=== PATIENT | male | born 1985 | race Native Hawaiian/Other Pacific Islander ===

== ENCOUNTER 2023-11-24 23:35 | Emergency (ER) | payer SELFPAY ==
[2023-11-24 23:43] VITALS: BP 135/84; PULSE 108; RESP 18; TEMP 37.1; O2SAT 96; BMI 28.5
--- NOTE | 2023-11-25 00:47 | CTR_ITS ---
PROCEDURE INFORMATION: Exam: CT Abdomen And Pelvis With Contrast Exam date and time: 11/25/2023 1:28 AM Age: 38 years old Clinical indication: Other: See exam info; Additional info: Pelvic pain, very swollen erythematous shaft penis TECHNIQUE: Imaging protocol: Computed tomography of the abdomen and pelvis with contrast. Radiation optimization: All CT scans at this facility use at least one of these dose optimization techniques: automated exposure control; mA and/or kV adjustment per patient size (includes targeted exams where dose is matched to clinical indication); or iterative reconstruction. Contrast material: OMNI 350; Contrast volume: 100 ml; Contrast route: INTRAVENOUS (IV); COMPARISON: No relevant prior studies available. RADIATION DOSE METRICS: Total DLP (mGy-cm): 864.9 FINDINGS: Lungs: Clear basilar lung parenchyma. Pleural spaces: No pleural fluid. Heart: Normal heart size. Liver: Normal configuration. Homogeneous parenchyma. Gallbladder and bile ducts: Postprandial gallbladder is contracted. No biliary tree dilation. Pancreas: Normal. No ductal dilation. Spleen: Lobulated low-attenuation foci in the spleen likely represent angiomas. Spleen is normal in overall size measuring 12.5 cm in length. Adrenal glands: Normal configuration. Kidneys and ureters: Kidneys enhance symmetrically and demonstrate no evidence of mass, calculus, obstruction, or inflammation. Stomach and bowel: Unremarkable. No obstruction. No mural thickening. Appendix: Normal appendix is confirmed. Intraperitoneal space: No free air. No significant fluid collection. Vasculature: Normal caliber arterial structures. Lymph nodes: Bilateral brightly enhancing reactive size inguinal lymph nodes are noted. Urinary bladder: Unremarkable as visualized. Reproductive: There is considerable edema throughout the penis. Along the dorsal aspect of the penis there is a rim enhancing fluid collection measuring 3.8 x 1.5 x 2.6 cm with attenuation coefficient 39 Hounsfield units. Bones/joints: No fracture or destructive lesion. Soft tissues: No soft tissue gas. No perineal/perianal abscess or inflammation. CT/CT abdomen pelvis w con* [id number] IMPRESSION: There is severe edema of the penis. There is a rim enhancing fluid collection along the dorsum of the penis which could be abscess or hematoma. No abnormal soft tissue gas. Reactive bilateral inguinal adenopathy.
--- NOTE | 2023-11-25 00:55 | W.ED.GENADLT ---
HPI - General Adult General: Chief complaint: General Medical Stated complaint: tick bite, swollen groin area Time Seen by Provider: 11/25/23 00:38 History of Present Illness: Patient presents to the ER with complaints of the shaft of his penis is very erythematous and swollen and painful. Patient states he pulled 2 ticks off his penis about a month ago went to [facility] and was treated with doxycycline. He says the reason he went to the hospital then was because of the redness and swelling. The they did disappear after he finished the antibiotics. But then they come off and on again a couple times but was all very minor. Today the swelling started and it got very swollen very red feels like it is going to split apart. Patient also states he just does not feel well and has not felt well since the original tick bite. Patient is not allergic to any medicine. Patient denies any problems with urinating such as pain burning frequency or discharge. Review of Systems General: Reports: 10 or more systems reviewed and unremarkable except in HPI and below Physical Exam Const: COMMON NORMALS: no acute distress, average body habitus, patient oriented x3, no limitations, healthy appearing, alert and well nourished HENMT: COMMON NORMALS: normocephalic, atraumatic, hearing grossly normal bilaterally, external ears normal, Normal external nose present and moist oral mucous membranes HEAD & SCALP: normocephalic and atraumatic NOSE: Normal external nose present EXTERNAL EAR: Yes external ears normal Neck/C-Spine: COMMON NORMALS: no JVD Chest: COMMONS NORMALS: normal inspection of the chest and normal palpation of entire chest wall Resp: COMMON NORMALS: normal respiratory effort, No retractions, No use of accessory muscles and clear to auscultation bilaterally AUSCULTATION: clear to auscultation bilaterally Cardio: COMMON NORMALS: no JVD, regular rate, regular rhythm, S1 normal heart sound present, S2 normal heart sound present, No gallops present (Cardio), No clicks present (Cardio), No murmurs present (Cardio) and No rub (Cardio) RATE: regular rate RHYTHM: regular rhythm HEART SOUNDS: S1 normal heart sound present and S2 normal heart sound present GI: COMMON NORMALS: Normal to inspection, nondistended, normoactive bowel sounds present, Soft to palpation, No hepatosplenomegaly present and no masses; negative for non-tender (Low pelvic region very tender to palpate, otherwise normal) PALPATION: Yes Soft to palpation and Yes No hepatosplenomegaly present : COMMON NORMALS: Yes Testes normal, Yes scrotum normal and Yes no scrotal swelling PENIS: circumcised, edematous and erythematous OTHER: Penile shaft very swollen and erythematous. Very tender to the touch, tenderness to the touch all the way into the pubic mons and down into the groin creases. No open sores, drainage discharge Neuro: COMMON NORMALS: patient oriented x3 SENSORIUM/ORIENTATION: Yes alert Course Vital Signs: Vital signs: Vital Signs Temperature 98.7 F 11/24/23 23:43 Pulse Rate 89 11/25/23 04:00 Respiratory Rate 16 11/25/23 04:00 Blood Pressure 135/61 11/25/23 04:00 Pulse Oximetry 96 11/25/23 04:00 Oxygen Delivery Me thod Room Air 11/25/23 04:00 MDM - General Adult Medical Decision Making Patient lab work that included CBC CMP lactic acid procalcitonin CRP blood cultures urinalysis, all white count of 18, lactic acid 1.7, procalcitonin 0.06 urinalysis 5-10 white blood cells, 0 to 4 cells, CT scan of the abdomen pelvis with contrast also showed a 3.8 x 1.5 x 2.6 cm rim-enhancing fluid collection in the dorsal aspect of the penis. No abnormal soft tissue gas. Reactive bilateral inguinal lymphadenopathy. Patient was given 10 mg dexamethasone, 30 mg Toradol, 600 mg clindamycin, 3.375 g of Zosyn, 4 mg of morphine, 4 mg of Zofran, [facility] transfer center was called. Transfer center called back and said there urologist Dr. Muhammad felt uncomfortable treating an abscess of the penis this big and he recommended that we [facility] him to some [facility]. Discussed this with the patient he would like to try [facility] first. Talk to the emergency response coordinator at [facility] they do not have any beds at this time. They said we can go on a wait list however is rather long wait list. We said we will continue to call around.Discussed the case with [facility] transfer center awaiting callback from urology so the transfer center called back and said Dr. Kerr urology wanted him to be seen and evaluated in their ER. Talk with Dr. Sampson in the ER who agreed to take the patient in transfer. Differential Diagnosis Penile abscess/cellulitis Medical Records I reviewed the patient's medical records. Lab Data I reviewed the patient's lab results. 11/25/23 00:51 11/25/23 00:51 Radiology Impressions Abdomen/Pelvis CT 11/25/23 00:47 IMPRESSION: There is severe edema of the penis. There is a rim enhancing fluid collection along the dorsum of the penis which could be abscess or hematoma. No abnormal soft tissue gas. Reactive bilateral inguinal adenopathy. Laboratory Results WBC 18.22 10^3/uL (3.29-11.43) H 11/25/23 00:51 RBC 5.28 10^6/uL (3.85-5.65) 11/25/23 00:51 Hgb 14.80 g/dL (11.27-16.99) 11/25/23 00:51 Hct 44.6 % (37-53) 11/25/23 00:51 MCV 84.5 fl (82-101) 11/25/23 00:51 MCH 28.0 pg (27-33) 11/25/23 00:51 MCHC 33.2 g/dL (30-55) 11/25/23 00:51 RDW 12.2 % (12.1-15.1) 11/25/23 00:51 Plt Count 416 10^3/cmm (157-399) H 11/25/23 00:51 MPV 10.1 fL (7.4-10.4) 11/25/23 00:51 Neut % (Auto) 80.4 % 11/25/23 00:51 Lymph % (Auto) 13.2 % 11/25/23 00:51 [place] % (Auto) 4.8 % 11/25/23 00:51 Eos % (Auto) 0.7 % 11/25/23 00:51 Baso % (Auto) 0.5 % 11/25/23 00:51 Neut # (Auto) 14.64 10^3/uL (1.8-7.7) H 11/25/23 00:51 Lymph # (Auto) 2.4 10^3/uL (0.8-4.8) 11/25/23 00:51 [place] # (Auto) 0.9 10^3/uL (0.2-0.9) 11/25/23 00:51 Eos # (Auto) 0.1 10^3/uL (0.0-0.8) 11/25/23 00:51 Baso # (Auto) 0.1 10^3/uL (0.0-0.1) 11/25/23 00:51 Nucleated RBC % (auto) 0 % 11/25/23 00:51 Nucleated RBCs # 0.0 /100WBC 11/25/23 00:51 Sodium 136 mmol/L (136-145) 11/25/23 00:51 Potassium 3.7 mmol/L (3.5-5.1) 11/25/23 00:51 Chloride 96 mmol/L (98-107) L 11/25/23 00:51 Carbon Dioxide 26 mmol/L (22-29) 11/25/23 00:51 Anion Gap 17.7 (5-19) 11/25/23 00:51 BUN 13 mg/dL (6-20) 11/25/23 00:51 Creatinine 1.0 mg/dL (0.7-1.2) 11/25/23 00:51 GFR Calculation 83.2 mL/min (90-130) L 11/25/23 00:51 Glucose 130 mg/dL (65-115) H 11/25/23 00:51 Calculated Osmolality 284 mOsm/kg (285-295) L 11/25/23 00:51 Lactic Acid 1.7 mmol/L (0.5-2.2) 11/25/23 00:51 Calcium 9.5 mg/dL (8.5-10.5) 11/25/23 00:51 Total Bilirubin 0.5 mg/dL (0.15-1.2) 11/25/23 00:51 AST 16 U/L (0-40) 11/25/23 00:51 ALT 28 U/L (0-41) 11/25/23 00:51 Alkaline Phosphatase 130 U/L (40-130) 11/25/23 00:51 C-Reactive Protein 28.6 mg/L (0.0-4.9) H 11/25/23 00:51 Total Protein 8.3 g/dL (6.6-8.7) 11/25/23 00:51 Albumin 4.4 g/dL (3.5-5.2) 11/25/23 00:51 Globulin 3.9 g/dL (1.3-4.6) 11/25/23 00:51 Procalcitonin 0.06 ng/mL (0-0.5) 11/25/23 00:51 Urine Color Yellow (Yellow) 11/25/23 00:51 Urine Appearance Slightly cloudy (CLEAR) 11/25/23 00:51 Urine pH 6 (5-7) 11/25/23 00:51 Ur Specific [place] 1.020 (1.005-1.030) 11/25/23 00:51 Urine Protein Neg (Negative) 11/25/23 00:51 Urine Glucose (UA) Norm (Normal) 11/25/23 00:51 Urine Ketones Negative (Negative) 11/25/23 00:51 Urine Blood Neg (Negative) 11/25/23 00:51 Urine Nitrate Negative (Negative) 11/25/23 00:51 Urine Bilirubin Neg (Negative) 11/25/23 00:51 Urine Urobilinogen 1 mg/dL (Negative) H 11/25/23 00:51 Ur Leukocyte Esterase Negative (Negative) 11/25/23 00:51 Urine RBC 0-4 /hpf (0-2) H 11/25/23 00:51 Urine WBC 5-10 /hpf (0-5) H 11/25/23 00:51 Ur Squamous Epith Cells 0-4 /hpf (0-5) H 11/25/23 00:51 Amorphous Sediment Not Reportable 11/25/23 00:51 Urine Bacteria Trace /hpf (NONE) 11/25/23 00:51 Urine Mucus 2+ /hpf 11/25/23 00:51 All radiology interpretation(s) finalized by discharge Discharge Plan Discharge Patient Disposition: Xfer Short-Term Hosp Clinical Impression: Abscess of shaft of penis, Cellulitis of shaft of penis Tick bite of penis Qualifiers: Encounter type: sequela Qualified Code(s): S30.862S - Insect bite (nonvenomous) of penis, sequela Condition: Stable Coding Level of Care Code ED Sales And In Home Delivery Specialist for [facility]
[2023-11-25 01:14] LABS: Basophils # 0.1 10^3/uL (0.0-0.1); Basophils % 0.5 %; Eosinophils # 0.1 10^3/uL (0.0-0.8); Eosinophils % 0.7 %; Hematocrit 44.6 % (37-53); Lymphocytes # 2.4 10^3/uL (0.8-4.8); Lymphocytes % 13.2 %; Mean Corpuscular HGB Conc 33.2 g/dL (30-55); Mean Corpuscular Volume 84.5 fl (82-101); Mean Platelet Volume 10.1 fL (7.4-10.4); Monocytes # 0.9 10^3/uL (0.2-0.9); Monocytes % 4.8 %; Neutrophils # 14.64 10^3/uL (1.8-7.7); Neutrophils % 80.4 %; Nucleated Red Blood Cells % 0 %; Platelet Count 416 10^3/cmm (157-399); Red Blood Count 5.28 10^6/uL (3.85-5.65); Red Cell Distribution Width 12.2 % (12.1-15.1); White Blood Count 18.22 10^3/uL (3.29-11.43)
[2023-11-25] MEDS: sodium chloride 0.9% 1,000 ML 999 ML IV (01:17)
[2023-11-25] MEDS: ketorolac 30 mg/mL INJ IVP (01:18)
[2023-11-25] MEDS: dexamethasone 10 mg/mL INJ IVP (01:18)
[2023-11-25 01:20] VITALS: PULSE 103; RESP 16; O2SAT 99
[2023-11-25] MEDS: iohexol 350 mg/mL 500 mL Btl (per mL) IV (01:31)
[2023-11-25 01:34] LABS: Add Urine Microscopic? YES; Bilirubin Urine Neg (Negative); Blood Urine Neg (Negative); Glucose Urine UA Norm (Normal); Ketones Urine Negative (Negative); Leukocyte Esterase Urine Negative (Negative); Nitrate Urine Negative (Negative); Protein Urine Neg (Negative); Urine Appearance Slightly Cloudy (CLEAR); Urine Color Yellow (Yellow); Urobilinogen Urine 1 mg/dL (Negative); pH Urine 6 (5-7)
[2023-11-25 01:35] LABS: Add Urine Culture? No; Alanine Aminotransferase 28 U/L (0-41); Albumin Level 4.4 g/dL (3.5-5.2); Alkaline Phosphatase 130 U/L (40-130); Anion Gap 17.7 (5-19); Aspartate Amino Transferase 16 U/L (0-40); Bacteria Urine TRACE /hpf; Blood Urea Nitrogen 13 mg/dL (6-20); C Reactive Protein 28.6 mg/L (0.0-4.9); Calcium 9.5 mg/dL (8.5-10.5); Carbon Dioxide 26 mmol/L (22-29); Chloride 96 mmol/L (98-107); Globulin 3.9 g/dL (1.3-4.6); Glomerular Filtration Rate 83.2 mL/min (90-130); Glucose 130 mg/dL (65-115); Lactic Sepsis W/Reflex 1.7 mmol/L (0.5-2.2); Mucus Urine 2+ /hpf; Osmolality Calculated 284 mOsm/kg (285-295); Potassium 3.7 mmol/L (3.5-5.1); RBC Urine 0-4 /hpf (0-2); Sodium 136 mmol/L (136-145); Squamous Epithelial Cell Urine 0-4 /hpf (0-5); Total Bilirubin 0.5 mg/dL (0.15-1.2); Total Protein 8.3 g/dL (6.6-8.7)
[2023-11-25 01:40] LABS: Procalcitonin 0.06 ng/mL (0-0.5)
[2023-11-25 02:00] VITALS: BP 124/59; PULSE 102; RESP 16; O2SAT 98
[2023-11-25] MEDS: piperacillin-tazobactam 3.375 GM in sodium chloride 0.9% (plus) 50 ML IV (02:14)
[2023-11-25] MEDS: clindamycin 600 MG/50 ML PREMIX 100 MG IV (02:14)
[2023-11-25 03:23] VITALS: RESP 18; O2SAT 98
[2023-11-25] MEDS: morphine 4 mg/mL SDV 1 mL IVP (03:23)
[2023-11-25] MEDS: ondansetron 2 mg/ML SDV 2 mL 4 MG IVP (03:24)
[2023-11-25 04:00] VITALS: BP 135/61; PULSE 89; RESP 16; O2SAT 96
[2023-11-25 06:33] VITALS: PULSE 89; RESP 16; O2SAT 98
[2023-11-26 13:14] LABS: Lyme AB Screen <0.90 index
[2023-12-02 17:19] LABS: E. Chaffeensis AB IGG <1:64; E. Chaffeensis AB IGM <1:20
== END 2023-11-25 06:36 | disposition short-term general hospital (02) ==
PROVIDERS: Emergency Provider Emergency Medicine
DX: N48.21 Abscess of corpus cavernosum and penis (principal); N48.22 Cellulitis of corpus cavernosum and penis; S30.86 Insect bite (nonvenomous) of abdomen, lower back, pelvis and external genitals; W57.XXXS Bitten or stung by nonvenomous insect and other nonvenomous arthropods, sequela
CPT/HCPCS: 36415; 74177; 80053; 81001; 83605; 84145; 85025; 86140; 86618; 86666; 86757; 87040; 96365; 96367; 96375; 99285; J1100; J1885; J2270; J2405; J2543; J3490; J7030; Q9967